=== PATIENT | male | born 1930 | race Caucasian/White ===

== ENCOUNTER 2018-02-18 10:38 | Emergency (ER) | payer BC, MEDICARE ==
[2018-02-18] MEDS ORDERED: SODIUM CHLORIDE 0.9% 1,000 ML IV STA (11:00)
[2018-02-18 12:15] LABS: ALT 29 U/L (21-72); AST 32 U/L (17-59); Alkaline Phosphatase 50 U/L (38-126); Anion Gap 14 mmol/L; Blood Urea Nitrogen 17 mg/dL (9-20); Calcium 8.7 mg/dL (8.4-10.2); Carbon Dioxide 24 mmol/L (22-30); Chloride 99 mmol/L (98-107); Glucose 102 mg/dL (74-99); Potassium 3.4 mmol/L (3.5-5.1); Sodium 137 mmol/L (137-145); Total Bilirubin 0.7 mg/dL (0.2-1.3); Total Protein 6.5 g/dL (6.3-8.2)
[2018-02-18 12:23] LABS: Basophils % (A) 1 %; Eosinophils % (A) 0 %; HCT 39.3 % (39.0-53.0); HGB 14.1 gm/dL (13.0-17.5); Lymphocytes # (A) 0.5 k/uL (1.0-4.8); Lymphocytes % (A) 7 %; MCH 31.2 pg (25.0-35.0); MCHC 35.9 g/dL (31.0-37.0); MCV 87.1 fL (80.0-100.0); Mean Platelet Volume 7.2; Monocytes # (A) 0.5 k/uL (0-1.0); Monocytes % (A) 8 %; Neutrophils % (A) 81 %; Platelet Count 195 k/uL (150-450); RBC 4.51 m/uL (4.30-5.90); RDW 13.5 % (11.5-15.5); WBC 6.1 k/uL (3.8-10.6)
[2018-02-18 12:26] LABS: INR 1.1 (<1.2); Partial Thromboplastin Time 22.7 sec (22.0-30.0); Prothrombin Time 10.3 sec (9.0-12.0)
--- NOTE | 2018-02-18 12:27 | CT ---
EXAMINATION TYPE: CT brain wo con DATE OF EXAM: 02/18/2018 COMPARISON: NONE HISTORY: Weakness and syncope. CT DLP: 1150 mGycm Automated exposure control for dose reduction was used. FINDINGS: Changes of chronic sinusitis. There is extensive degenerative change with a greater frontal lobe comp onent. This may represent asymmetric atrophy or less likely chronic subdural hematoma. No midline ludwin ft. No acute hemorrhage. 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 May been the basis of previous surgery or developmental. No soft tissue component. Correlate with the patient's history. Extensive changes of chronic sinusitis are noted. IMPRESSION: 1. DEGENERATIVE AND NONSPECIFIC WHITE MATTER CHANGES. NO MIDLINE SHIFT OR ACUTE HEMORRHAGE. IF THERE IS CONCERN FOR ACUTE ISCHEMIA CORRELATE WITH MRI CLINICALLY WARRANTED. 2. 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 IF THERE IS BEEN NO PREVIOUS SURGERY SHORT-TERM FOLLOW-UP BONE SCAN OR MRI COULD BE OBTAINED.
--- NOTE | 2018-02-18 12:33 | XR ---
EXAMINATION TYPE: XR shoulder complete RT DATE OF EXAM: 02/18/2018 CLINICAL HISTORY: Acute on chronic shoulder pain TECHNIQUE: Three views of the right shoulder are obtained. COMPARISON: None. FINDINGS: There is no acute fracture/dislocation evident in the right shoulder. The acromioclavicul ar and glenohumeral joint spaces demonstrate mild joint space narrowing with marginal osteophytes of the acromioclavicular joint. The visualized ribs are intact and unremarkable. IMPRESSION: There is no acute fracture or dislocation in the right shoulder. Mild acromio clavicular and glenohumeral arthropathy.
--- NOTE | 2018-02-18 12:34 | XR ---
EXAMINATION TYPE: XR chest 2V DATE OF EXAM: 02/18/2018 COMPARISON: NONE HISTORY: Cough and flulike symptoms TECHNIQUE: Frontal and lateral views of the chest are obtained. 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 No focal consolidati on, pleural effusion or pneumothorax is seen. Cardiomediastinal silhouette is mildly enlarged. Minima l degenerative changes of the thoracic spine are seen. IMPRESSION: No acute cardiopulmonary process.
--- NOTE | 2018-02-18 12:37 | ED ---
Syncope HPI - General Chief Complaint: Syncope Stated Complaint: Syncope Time Seen by Provider: 02/18/18 10:44 Source: patient Mode of arrival: wheelchair Limitations: no limitations - History of Present Illness Initial Comments: 87 years old male he has not been feeling well for the last 3 days he said he has been coughing and he felt like he had a flu this morning while he was eating his breakfast he passed out he was in the kitchen when he fell to the lateral on the right shoulder he also has a chronic rotator cuff injury and now it's painful to move the right shoulder. He denies any head injury today no neck injury no chest pain or shortness of breath no abdominal pain no frequency urgency dysuria no symptoms of TIA or CVA - Related Data Home Medications Medication Instructions Recorded Confirmed Acetaminophen [Tylenol Extra 1,000 mg PO Q6H PRN 02/18/18 02/18/18 Strength] Aspirin EC [Ecotrin Low Dose] 81 mg PO DAILY 02/18/18 02/18/18 Hydrochlorothiazide [Hydrodiuril] 25 mg PO DAILY 02/18/18 02/18/18 Simvastatin [Zocor] 10 mg PO HS 02/18/18 02/18/18 Allergies Allergy/AdvReac Type Severity Reaction Status Date / Time No Known Allergies Allergy Verified 02/18/18 11:02 Review of Systems ROS Statement: Those systems with pertinent positive or pertinent negative responses have been documented in the HPI. ROS Other: All systems not noted in ROS Statement are negative. Past Medical History Past Medical History: Hyperlipidemia, Hypertension Additional Past Medical History / Comment(s): kidney stones History of Any Multi-Drug Resistant Organisms: None Reported Past Surgical History: Hernia Repair Past Psychological History: No Psychological Hx Reported Smoking Status: Never smoker Past Alcohol Use History: None Reported Past Drug Use History: None Reported General Exam - General Exam Comments Initial Comments: General: The patient is awake and alert, in no distress, and does not appear acutely ill. GCS is 15 Skin: Skin is warm and dry and no rashes or lesions are noted. Notice some chronic lesions on the scalp Eye: Pupils are equal, round and reactive to light, extra-ocular movements are intact; there is normal conjunctiva bilaterally. Ears, nose, mouth and throat: There are moist mucous membranes and no oral lesions. Neck: The neck is supple, there is no tenderness, no focal area of discomfort noticed over the cervical spine Cardiovascular: There is a regular rate and rhythm. No murmur, rub or gallop is appreciated. Respiratory: To auscultation bilateral, no wheezing no rhonchi no distress respiratory [place] noticed Gastrointestinal: Soft, non-distended, non-tender abdomen without masses or organomegaly noted. There is no rebound or guarding present. Bowel sounds are unremarkable. Back: There is no tenderness to palpation in the midline. There is no obvious deformity. Musculoskeletal: Occasional range of motion with the right shoulder is also tender at the before meals joint and the head of the humerus no neurovascular compromise noticed over the right distal upper extremity Neurological: CN II-XII intact, Cranial nerves III through XII are intact. There are no obvious motor or sensory deficits. Coordination appears grossly intact. Speech is normal. Psychiatric: Cooperative, appropriate mood & affect, normal judgment. Limitations: no limitations Course Vital Signs 02/18/18 02/18/18 10:41 13:04 Temperature 98.0 F Pulse Rate 64 71 Respiratory 20 18 Rate Blood Pressure 148/67 152/70 O2 Sat by Pulse 97 99 Oximetry Patient is reassessed at term 140, CBC, INR, troponin, CMP are normal head CT showed 2 calvarium defects, patient has a surgery on the right right prito temporal area head injury and he had a hematoma but he feels great education class and was done about orthostatic hypertension and he was advised to move slowly when changing positions he be discharged home to follow up with his family doctor EKG Findings - EKG Comments: EKG Findings:: EKG is normal sinus rhythm medical rate is 71 PA interval is 180 QRS duration is 90 QT/QTc is 388/421 review of this EKG does not reveal any ST elevation noticed some T-wave inversions in lead V4 V5 and V6 Medical Decision Making - Lab Data Result diagrams: 02/18/18 11:52 02/18/18 11:52 Lab Results 02/18/18 02/18/18 02/18/18 Range/Units 11:45 11:52 11:52 WBC 6.1 (3.8-10.6) k/uL RBC 4.51 (4.30-5.90) m/uL Hgb 14.1 (13.0-17.5) gm/dL Hct 39.3 (39.0-53.0) % MCV 87.1 (80.0-100.0) fL MCH 31.2 (25.0-35.0) pg MCHC 35.9 (31.0-37.0) g/dL RDW 13.5 (11.5-15.5) % Plt Count 195 (150-450) k/uL Neutrophils % 81 % Lymphocytes % 7 % Monocytes % 8 % Eosinophils % 0 % Basophils % 1 % Neutrophils # 5.0 (1.3-7.7) k/uL Lymphocytes # 0.5 L (1.0-4.8) k/uL Monocytes # 0.5 (0-1.0) k/uL Eosinophils # 0.0 (0-0.7) k/uL Basophils # 0.0 (0-0.2) k/uL PT (9.0-12.0) sec INR (<1.2) APTT (22.0-30.0) sec Sodium (137-145) mmol/L Potassium (3.5-5.1) mmol/L Chloride (98-107) mmol/L Carbon Dioxide (22-30) mmol/L Anion Gap mmol/L BUN (9-20) mg/dL Creatinine (0.66-1.25) mg/dL Est GFR (CKD-EPI)AfAm (>60 ml/min/1.73 sqM) Est GFR (CKD-EPI)NonAf (>60 ml/min/1.73 sqM) Glucose (74-99) mg/dL Calcium (8.4-10.2) mg/dL Total Bilirubin (0.2-1.3) mg/dL AST (17-59) U/L ALT (21-72) U/L Alkaline Phosphatase (38-126) U/L Total Creatine Kinase 165 (55-170) U/L CK-MB (CK-2) 0.4 (0.0-2.4) ng/mL CK-MB (CK-2) Rel Index 0.2 Troponin I 0.019 (0.000-0.034) ng/mL Total Protein (6.3-8.2) g/dL Albumin (3.5-5.0) g/dL Urine Color Urine Appearance (Clear) Urine pH (5.0-8.0) Ur Specific [place] (1.001-1.035) Urine Protein (Negative) Urine Glucose (UA) (Negative) Urine Ketones (Negative) Urine Blood (Negative) Urine Nitrite (Negative) Urine Bilirubin (Negative) Urine Urobilinogen (<2.0) mg/dL Ur Leukocyte Esterase (Negative) Urine RBC (0-5) /hpf Urine WBC (0-5) /hpf Ur Squamous Epith Cells (0-4) /hpf Urine Mucus (None) /hpf Influenza Type A RNA Not Detected (Not Detectd) Influenza Type B (PCR) Not Detected (Not Detectd) 02/18/18 02/18/18 02/18/18 Range/Units 11:52 11:52 13:00 WBC (3.8-10.6) k/uL RBC (4.30-5.90) m/uL Hgb (13.0-17.5) gm/dL Hct (39.0-53.0) % MCV (80.0-100.0) fL MCH (25.0-35.0) pg MCHC (31.0-37.0) g/dL RDW (11.5-15.5) % Plt Count (150-450) k/uL Neutrophils % % Lymphocytes % % Monocytes % % Eosinophils % % Basophils % % Neutrophils # (1.3-7.7) k/uL Lymphocytes # (1.0-4.8) k/uL Monocytes # (0-1.0) k/uL Eosinophils # (0-0.7) k/uL Basophils # (0-0.2) k/uL PT 10.3 (9.0-12.0) sec INR 1.1 (<1.2) APTT 22.7 (22.0-30.0) sec Sodium 137 (137-145) mmol/L Potassium 3.4 L (3.5-5.1) mmol/L Chloride 99 (98-107) mmol/L Carbon Dioxide 24 (22-30) mmol/L Anion Gap 14 mmol/L BUN 17 (9-20) mg/dL Creatinine 0.73 (0.66-1.25) mg/dL Est GFR (CKD-EPI)AfAm >90 (>60 ml/min/1.73 sqM) Est GFR (CKD-EPI)NonAf 85 (>60 ml/min/1.73 sqM) Glucose 102 H (74-99) mg/dL Calcium 8.7 (8.4-10.2) mg/dL Total Bilirubin 0.7 (0.2-1.3) mg/dL AST 32 (17-59) U/L ALT 29 (21-72) U/L Alkaline Phosphatase 50 (38-126) U/L Total Creatine Kinase (55-170) U/L CK-MB (CK-2) (0.0-2.4) ng/mL CK-MB (CK-2) Rel Index Troponin I (0.000-0.034) ng/mL Total Protein 6.5 (6.3-8.2) g/dL Albumin 4.0 (3.5-5.0) g/dL Urine Color Yellow Urine Appearance Clear (Clear) Urine pH 6.5 (5.0-8.0) Ur Specific [place] 1.015 (1.001-1.035) Urine Protein Trace H (Negative) Urine Glucose (UA) Negative (Negative) Urine Ketones Negative (Negative) Urine Blood Moderate H (Negative) Urine Nitrite Negative (Negative) Urine Bilirubin Negative (Negative) Urine Urobilinogen <2.0 (<2.0) mg/dL Ur Leukocyte Esterase Negative (Negative) Urine RBC 17 H (0-5) /hpf Urine WBC 3 (0-5) /hpf Ur Squamous Epith Cells <1 (0-4) /hpf Urine Mucus Moderate H (None) /hpf Influenza Type A RNA (Not Detectd) Influenza Type B (PCR) (Not Detectd) Disposition Clinical Impression: Syncope, Right shoulder injury Disposition: HOME SELF-CARE Condition: Fair Instructions: Syncope (ED) Additional Instructions: Tylenol 1 mg by mouth to 8 when necessary for pain Is patient prescribed a controlled substance at d/c from ED?: No If prescribed controlled substance>3 days was MAPS reviewed?: No When asked, does pt state using other controlled substances?: No Referrals: Damian Lou MD [Primary Care Provider] - 1-2 days
[2018-02-18 12:49] LABS: Creatine Kinase MB 0.4 ng/mL (0.0-2.4); Troponin I 0.019 ng/mL (0.000-0.034)
[2018-02-18 13:05] VITALS: PULSE 71; RESP 18
[2018-02-18 13:20] LABS: Appearance,Urine Clear (Clear); Bilirubin,Urine Negative (Negative); Blood,Urine Moderate (Negative); Color,Urine Yellow; Glucose,Urine (UA) Negative (Negative); Ketones,Urine Negative (Negative); Leukocyte Esterase,Urine Negative (Negative); Mucus,Urine Moderate /hpf; Nitrite,Urine Negative (Negative); PH, Urine 6.5 (5.0-8.0); Protein,Urine Trace (Negative); RBC,Urine 17 /hpf (0-5); Specific Gravity,Urine 1.015 (1.001-1.035); Squamous Epithelial Cell,Urine <1 /hpf (0-4); Urobilinogen,Urine <2.0 mg/dL (<2.0); WBC,Urine 3 /hpf (0-5)
[2018-02-18 14:23] VITALS: BP 146/69
[2018-02-18 14:26] VITALS: TEMP 97.4
== END 2018-02-18 14:26 | disposition home or self-care (01) ==
LOC: EC 10:38
DX: S49.91XA Unspecified injury of right shoulder and upper arm, initial encounter (principal); R40.2412 Glasgow coma scale score 13-15, at arrival to emergency department; L98.8 Other specified disorders of the skin and subcutaneous tissue; E78.5 Hyperlipidemia, unspecified; I10 Essential (primary) hypertension; Z79.82 Long term (current) use of aspirin; Z79.899 Other long term (current) drug therapy; W19.XXXA Unspecified fall, initial encounter; Y93.89 Activity, other specified; Y92.000 Kitchen of unspecified non-institutional (private) residence as the place of occurrence of the external cause
CPT/HCPCS: 36415; 70450; 71046; 80053; 81001; 82550; 82553; 84484; 85025; 85610; 85730; 87502; 93005; 96360; 96361; 99284